=== PATIENT | female | born 2000 | race Caucasian/White ===

== ENCOUNTER 2024-11-17 11:16 | Emergency (ER) | payer OTHER, SELFPAY ==
[2024-11-17 11:42] VITALS: BP 117/72; PULSE 72; RESP 16; TEMP 36.9; O2SAT 98; BMI 21.2
--- NOTE | 2024-11-17 11:50 | ED_ITS ---
HPI - Ear Problem <Nilson Newman PA-C - Last Filed: 11/17/24 15:14> General Chief complaint: Ear Stated complaint: Pain in both ears Time Seen by Provider: 11/17/24 11:50 Source: patient Mode of arrival: Ambulatory History of Present Illness HPI Narrative: 24-year-old female presents to the ED with 1 month of left ear pain and fullness. Patient states that the symptoms started right after she had a cold. Two weeks ago, patient states that she had an acute exacerbation of the left ear pain, accompanied with some purulent discharge from that ear. No fever, chills, chest pain, shortness of breath. Patient was seen at a [facility] clinic 1 week ago, prescribed Augmentin, Flonase, Zyrtec. Patient has been taking those medications, states her left ear pain has worsened. Patient went back to the [facility] clinic this morning, they told her that she could be referred to an ENT in 6 weeks. Related Data Previous Rx's Medication Instructions Recorded ofloxacin 0.3 % ear drops 10 drp EAR-LEFT Q12H 14 days #10 mL 11/17/24 tramadol 50 mg tablet 50 mg PO Q6H PRN pain 3 days #12 11/17/24 tabs Allergies Allergy/AdvReac Type Severity Reaction Status Date / Time acetaminophen [From [facility]] Allergy Verified 11/17/24 11:42 pamabrom [From [facility]] Allergy Verified 11/17/24 11:42 Review of Systems <Nilson Newman PA-C - Last Filed: 11/17/24 15:14> Constitutional Constitutional: Denies chills, Denies fatigue, Denies fever(s), Denies frequent falls, Denies lethargy and Denies weakness Eyes Eyes: Denies change in vision, Denies eye discharge, Denies irritation and Denies loss of vision ENT Ears, Nose, Mouth, and Throat: Denies change in voice, Denies dizziness, Denies neck pain, Denies sore throat and Denies throat swelling Comments: Ear pain, left greater than right Cardiovascular Cardiovascular: Denies chest pain, Denies irregular heart rhythm, Denies lightheadedness, Denies palpitations, Denies dyspnea, Denies dyspnea on exertion and Denies orthopnea Respiratory Respiratory: Denies cough, Denies dyspnea, Denies dyspnea on exertion and Denies wheezing Gastrointestinal Gastrointestinal: Denies abdominal pain, Denies change in bowel habits, Denies diarrhea, Denies nausea and Denies vomiting Musculoskeletal Musculoskeletal: Denies neck pain and Denies numbness Integumentary/Breasts Skin/Breast: Denies pruritus, Denies erythema, Denies rash and Denies wounds Neurologic Neurologic: Denies behavioral changes, Denies confusion, Denies dizziness, Denies frequent falls, Denies loss of vision, Denies numbness and Denies weakness Psychiatric Psychiatric: Denies anxiety, Denies behavioral changes, Denies confusion, Denies depression, Denies homicidal ideation and Denies suicidal ideation Endocrine Endocrine: Denies fatigue, Denies flushing and Denies palpitations Hematologic/Lymphatic Hematologic/Lymphatic: Denies easy bruising Allergic/Immunologic Allergic/Immunologic: Denies urticaria, Denies throat swelling and Denies wheezing Patient History <Nilson Newman PA-C - Last Filed: 11/17/24 15:14> Family History Father Hypertension Mother Asthma Social History Smoking Status: Never smoker Smoking Status: Never smoker Exam <Nilson Newman PA-C - Last Filed: 11/17/24 15:14> Narrative Exam Narrative: Const General:?cooperative, healthy appearing and comfortable [facility] Head:?normal to inspection Ears:? Left tympanum appears to be perforated; right tympanum normal; no mastoid tenderness; hearing grossly normal Nose:?external nose normal Face and sinus:?normal facial exam and sinuses nontender Mouth:?oral mucosae normal Throat:?posterior oropharynx normal Eyes General:?appearance normal, both eyes and all related structures Neck Neck:?normal visual inspection and no lymphadenopathy noted Resp Effort & Inspection:?normal respiratory effort Auscultation:?clear to auscultation bilaterally Cardio Rate:?regular rate Rhythm:?regular rhythm Neuro General:?patient alert, patient awake and patient oriented x3 Initial Vital Signs Initial Vital Signs: Vital Signs Temperature 98.5 F 11/17/24 11:42 Pulse Rate 72 11/17/24 11:42 Respiratory Rate 16 11/17/24 11:42 Blood Pressure 117/72 11/17/24 11:42 Pulse Oximetry 98 11/17/24 11:42 Oxygen Delivery Method Room Air 11/17/24 11:42 <Ashley Denney DO - Last Filed: 11/18/24 07:44> Initial Vital Signs Initial Vital Signs: Vital Signs Temperature 98.5 F 11/17/24 11:42 Pulse Rate 72 11/17/24 11:42 Respiratory Rate 16 11/17/24 11:42 Blood Pressure 117/72 11/17/24 11:42 Pulse Oximetry 98 11/17/24 11:42 Oxygen Delivery Method Room Air 11/17/24 11:42 Course <Nilson Newman PA-C - Last Filed: 11/17/24 15:14> Vital Signs Vital signs: Vital Signs - 8 hr 11/17/24 11:42 11/17/24 12:43 Temperature 98.5 F Pulse Rate 72 65 Respiratory Rate 16 19 Blood Pressure 117/72 122/78 Pulse Oximetry 98 98 Oxygen Delivery Method Room Air Room Air <Ashley Denney DO - Last Filed: 11/18/24 07:44> Vital Signs Vital signs: Vital Signs - 8 hr 11/17/24 11:42 11/17/24 12:43 Temperature 98.5 F Pulse Rate 72 65 Respiratory Rate 16 19 Blood Pressure 117/72 122/78 Pulse Oximetry 98 98 Oxygen Delivery Method Room Air Room Air Medical Decision Making <Nilson Newman PA-C - Last Filed: 11/17/24 15:14> MDM Narrative Medical decision making narrative: 24-year-old female presents to the ED with 1 month of left ear pain and fullness. On physical exam, it appears that patient might have a tympanic perforation of the left tympanum. Right tympanum was occluded with cerumen, irrigation was performed. Post irrigation, right tympanum was visualized and appears normal. Recommend that patient continue her antibiotics for a total of 10-14 days. Prescribed ofloxacin eardrops. Prescribed pain medication. Called Dr. Aguilar's office to get patient a ENT follow-up. They will try to obtain referral and advised that patient should call them back again to schedule a time. Discussed findings and plan with patient. She verbalized understanding. Medical records reviewed: Yes Discharge Plan Departure Patient Disposition: Home Clinical Impression: Otitis media Qualifiers: Otitis media type: suppurative Chronicity: acute Laterality: left Recurrence: not specified as recurrent Spontaneous tympanic membrane rupture: with spontaneous rupture Qualified Code(s): H66.012 - Acute suppurative otitis media with spontaneous rupture of ear drum, left ear Instructions: DI for Tympanic Membrane Perforation-Adult Activity Restrictions/Additional Instructions: You were evaluated in the ED today for left-sided ear pain and fullness. It appears that you might have ruptured your left eardrum which is causing your symptoms. Please complete the oral antibiotics that you have been prescribed at [facility], ensuring that you take 10-14 days of antibiotics total. You were also being prescribed antibioti, you may call them c eardrops to use in the left ear for the next [address] Aguilar's office has been made aware, you may call them at [phone] to make an appointment. You were also being prescribed tramadol, which is an opioid medication for pain relief. Please be aware this can make you sleepy, and therefore refrain from driving or operating machinery when taking this medication. You may also take 600-800 mg of ibuprofen every 8 hours with food for pain. Please also continue using the Flonase until you are able to see Dr. Aguilar. Return to the ED if you have worsening symptoms. Prescriptions: New ofloxacin 0.3 % drops 10 drp EAR-LEFT Q12H 14 Days Qty: 10 0RF tramadol 50 mg tablet 50 mg PO Q6H PRN (Reason: pain) 3 Days Qty: 12 0RF Stand Alone Forms: Patient Portal/API/Survey, Work Release Note ED Sign-out <Ashley Denney DO - Last Filed: 11/18/24 07:44> Cosign ED Attending Cosaliciaature Attestation: I was immediately available in the department for consultation.
--- NOTE | 2024-11-17 11:58 | PC.NURSE ---
Pt sitting calmly with family. Appears in NAD. Reports bilateral ear pain.
[2024-11-17 12:43] VITALS: BP 122/78; PULSE 65; RESP 19; O2SAT 98
== END 2024-11-17 12:56 | disposition home or self-care (01) ==
PROVIDERS: Emergency Provider Student in an Organized Health Care Education/Training Program
DX: H66.012 Acute suppurative otitis media with spontaneous rupture of ear drum, left ear (principal)
CPT/HCPCS: 69209; 99283

== ENCOUNTER 2025-04-16 10:14 | Emergency (ER) | payer OTHER, SELFPAY ==
[2025-04-16] VITALS (10 sets, daily range): BP systolic 110–123; BP diastolic 55–73; PULSE 70–116; RESP 14–16; TEMP 37; O2SAT 98–100; BMI 19.4
--- NOTE | 2025-04-16 10:37 | DI.RAD.S_ITS ---
PROCEDURE: XR CHEST 1V INDICATIONS: chest pain TECHNIQUE: One view of the chest was acquired. COMPARISON: [facility], , CHEST 2 VIEW, 08/10/2014, 15:46. FINDINGS: Surgical changes and devices: None. Lungs and pleura: Lungs are clear. No pleural effusions or pneumothorax. Mediastinum: Mediastinal contours appear normal. Heart size is normal. Bones and chest wall: No suspicious bony lesions. Overlying soft tissues appear unremarkable. IMPRESSION: No acute cardiopulmonary abnormality is seen. Clear lungs. Dictated by: Luis Nam M.D. on 04/16/2025 at 10:28 Approved by: Luis Nam M.D. on 04/16/2025 at 10:29
--- NOTE | 2025-04-16 10:38 | ED.DIZZY ---
HPI - Dizziness General Chief Complaint: Dizziness Stated Complaint: woke up fainting , N/V Sweating Time Seen by Provider: 04/16/25 10:20 Source: patient Mode of arrival: Ambulatory History of Present Illness HPI Narrative: 25-year-old female with no significant past medical or surgical history other than ruptured tympanic membrane treated with antibiotics a few months ago since with extreme nausea but no vomiting and chronic diarrhea she attributes to being lactose intolerance. She stated that she almost passed out this morning after getting up seeing black spots and feeling unsteady. Patient denies chest pain, shortness of breath, headache, dizziness, blurred vision, cough, runny nose, sore throat, body aches, fever, chills, body aches, sick contacts, abdominal pain. Other than what is stated 14 point review of system is negative. Related Data Allergies Allergy/AdvReac Type Severity Reaction Status Date / Time acetaminophen (From [facility]) Allergy Verified 04/16/25 10:27 pamabrom (From [facility]) Allergy Verified 04/16/25 10:27 Review of Systems Review of Systems ROS Unobtainable: All systems reviewed & are unremarkable except as noted in HPI and below Patient History Family History Father Hypertension Mother Asthma Exam Narrative Exam Narrative: GENERAL: [25] year old patient appears stated age. Well-developed patient, in mild distress. HEAD: Atraumatic. Normocephalic. EYES: Pupils equal round and reactive. Extraocular motions intact. No scleral icterus. No injection or drainage. ENT: Nose without bleeding, purulent drainage. Throat without erythema, tonsillar hypertrophy or exudate. Airway patent. NECK: Trachea midline. Non tender CARDIOVASCULAR: Regular rate and rhythm without murmurs, gallops, or rubs. RESPIRATORY: Clear to auscultation. Breath sounds equal bilaterally. No wheezes, rales, or rhonchi. GASTROINTESTINAL: Abdomen soft, non-tender, nondistended. EXTREMITIES: No edema or joint tenderness. BACK: Nontender without deformity or crepitance. No flank tenderness. NEURO: AOx3. GCS 15 nonfocal neuro exam SKIN: No rash or erythema of visible areas Initial Vital Signs Initial Vital Signs: Vital Signs Temperature 98.6 F 04/16/25 10:23 Pulse Rate 116 H 04/16/25 10:23 Respiratory Rate 16 09/18/25 10:23 Blood Pressure 123/73 04/16/25 10:23 Pulse Oximetry 98 04/16/25 10:23 Oxygen Delivery Method Room Air 04/16/25 10:23 Course Orders Ordered: ED Orders 04/16/25 10:37 XR chest 1V Stat Complete Blood Count AUTO DIFF Stat Comprehensive Metabolic Panel Stat Covid-19 + FLU A/B + RSV - PCR Stat Lipase Stat Troponin & CK Cardiac Panel Stat EKG-12 Lead Stat Lactated Ringer's (Lactated Ringers) 1,000 mls @ 1,000 mls/hr IV BOLUS ONE Stop: 04/16/25 11:36 Discontinued Medications Ondansetron HCl (Ondansetron 4 Mg/2 Ml Inj) 4 mg IV NOW ONE Stop: 04/16/25 10:38 Vital Signs Vital signs: Vital Signs - 8 hr 04/16/25 10:23 Temperature 98.6 F Pulse Rate 116 H Respiratory Rate 16 Blood Pressure 123/73 Pulse Oximetry 98 Oxygen Delivery Method Room Air MDM - Dizziness Imaging Data Chest x-ray: Radiologist's Impression: [address] [address] XRay Report Signed Patient: Joycelyn Olguin MR#: [id number] : 2000 Acct:[id number] Age/Sex: 25 / F Date of Service: 04/16/25 Loc: ED Accession Number: [id number] Procedure: XR chest 1V Ordering Provider: Vidal Randall D.O. PROCEDURE: XR CHEST 1V INDICATIONS: chest pain TECHNIQUE: One view of the chest was acquired. COMPARISON: [facility], , CHEST 2 VIEW, 08/10/2014, 15:46. FINDINGS: Surgical changes and devices: None. Lungs and pleura: Lungs are clear. No pleural effusions or pneumothorax. Mediastinum: Mediastinal contours appear normal. Heart size is normal. Bones and chest wall: No suspicious bony lesions. Overlying soft tissues appear unremarkable. IMPRESSION: No acute cardiopulmonary abnormality is seen. Clear lungs. MDM Narrative Medical decision making narrative: All lab work, vital signs, nurse triage note, medication list, previous ER visits, and all imaging studies reviewed. CBC CMP all normal except for glucose of 64. Patient is not orthostatic but was given 1 L of lactated ringer bolus. GCS 15 nonfocal neuro exam. Differential diagnosis includes POTS, orthostatic hypotension, hypoglycemia, thyroid disease, celiac disease, dehydration. Discharge Plan Departure Patient Disposition: Home Clinical Impression: Hypoglycemia, Chronic diarrhea Instructions: DI for Hypoglycemia Activity Restrictions/Additional Instructions: Return with new or worsening symptoms. Keep hydrated. Follow up PCP next week for further workup of chronic diarrhea. Stand Alone Forms: Patient Portal/API
[2025-04-16 10:50] LABS: Add Manual Diff / Slide Review NO; Hematocrit 43.1 % (36-46); Hemoglobin 14.4 g/dL (12.0-16.0); Lymphocytes Absolute Auto 1800 /uL (1100-4500); Mean Corpuscular HGB Conc 33.3 % (30-36); Mean Corpuscular Hemoglobin 28.0 PG (26-34); Mean Corpuscular Volume 84.1 fL (80-100); Platelet Count 222 X10^3/uL (150-400)
[2025-04-16 10:59] LABS: Alanine Aminotransferase 16 IU/L (<35); Albumin 4.7 g/dL (3.5-5.0); Albumin Globulin Ratio 1.4 (1.0-2.8); Alkaline Phosphatase 53 U/L (38-126); Blood Urea Nitrogen 12 mg/dL (7-17); Calcium 9.3 mg/dL (8.4-10.2); Carbon Dioxide 22 mmol/L (22-32); Chloride 105 mmol/L (98-107); Creatine Kinase 44 U/L (30-135); Estimated Glomerular Filt Rate > 60 mL/min (>60); Globulin 3.3 g/dL (1.7-4.1); Glucose 64 mg/dL (70-99); HEMOLYSIS < 15 (0-50); Lipase 52 U/L (23-300); Potassium 4.2 mmol/L (3.4-5.1); Sodium 139 mmol/L (137-145); Total Protein 8.0 g/dL (6.3-8.2)
[2025-04-16 11:10] LABS: Troponin I < 0.012 ng/mL (0.01-0.034)
[2025-04-16] MEDS: LACTATED RINGERS 1,000 ML 1000 ML IV (11:12)
[2025-04-16 12:27] LABS: Thyroid Stimulating Hormone 0.945 uIU/mL (0.47-4.68)
[2025-04-16 12:33] LABS: Influenza A - CEPHEID Flu A NEGATIVE (NEGATIVE); Influenza B - CEPHEID Flu B NEGATIVE (NEGATIVE)
[2025-04-16 12:38] LABS: COVID-19 CEPHEID 4-PLEX PCR Negative (Negative)
== END 2025-04-16 13:26 | disposition home or self-care (01) ==
PROVIDERS: Emergency Provider Family Medicine
DX: E16.2 Hypoglycemia, unspecified (principal); K52.9 Noninfective gastroenteritis and colitis, unspecified; R07.9 Chest pain, unspecified
CPT/HCPCS: 36415; 71045; 80053; 81003; 82550; 83690; 84443; 84484; 85025; 87637; 96360; 99284